=== PATIENT | female | born 1990 | race Asian ===

== ENCOUNTER 2022-01-31 13:20 | Emergency (ER) | payer OTHER ==
[~2022-01-31] VITALS: Ht 172.7 cm; Wt 66.2 kg
[2022-01-31 13:23] VITALS: BP 112/65
--- NOTE | 2022-01-31 13:31 | NUR ---
PT AMB TO BED 9.
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
[2022-01-31] MEDS ORDERED: IBUP200C97 PO (14:28)
[2022-01-31] MEDS ORDERED: CYCL-711 PO (14:28)
[2022-01-31 14:37] VITALS: BP 112/65
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
== END 2022-01-31 14:37 | disposition home or self-care (01) ==
LOC: MED 13:20
DX: S13.9XXA Sprain of joints and ligaments of unspecified parts of neck, initial encounter (principal); Z79.899 Other long term (current) drug therapy; V89.2XXA Person injured in unspecified motor-vehicle accident, traffic, initial encounter; Y93.89 Activity, other specified; Y92.89 Other specified places as the place of occurrence of the external cause; Y99.8 Other external cause status
CPT/HCPCS: 72050; 99283